=== PATIENT | female | born 1945 | race Caucasian/White ===

== ENCOUNTER 2022-07-02 21:51 | Emergency (ER) | payer MEDICARE, OTHER ==
[~2022-07-02] VITALS: Ht 162.6 cm; Wt 77.1 kg
--- NOTE | 2022-07-02 22:05 | NUR ---
TO ER BED 9. BIBFAMILY C/O RIGHT FOOT PAIN S/P HITTING FOOT ON KITCKEN COUNTER . PAIN WHILE AMBULATING. PT IS ALERT AND ORIENTED. BREATHING IS EVEN AND NONLABORED. CONNECTED TO MONITOR. AWAITING MD CORLEY
[2022-07-02] MEDS ORDERED: KETOROLAC TROMETHAMINE INJ 30 MG/ML VIAL ONE (22:26)
[2022-07-02] MEDS: KETOROLAC TROMETHAMINE INJ 30 MG/ML VIAL IM ONE (22:29)
--- NOTE | 2022-07-02 22:32 | NUR ---
XRAY AT BEDSIDE
[2022-07-02] MEDS ORDERED: IBUPROFEN 400 MG TABLET ONE (22:38)
[2022-07-02] MEDS: IBUPROFEN 400 MG TABLET PO ONE (22:46)
[2022-07-02] MEDS ORDERED: IBUP-1957 PO ×2 (23:01→23:20)
[2022-07-02 23:30] VITALS: BP 131/68
--- NOTE | 2022-07-02 23:30 | NUR ---
Patient discharged to home in stable condition. Written and verbal after care instructions given. Patient verbalizes understanding of instruction.
== END 2022-07-02 23:31 | disposition home or self-care (01) ==
LOC: ER 21:51
DX: S92.511A Displaced fracture of proximal phalanx of right lesser toe(s), initial encounter for closed fracture (principal); E78.00 Pure hypercholesterolemia, unspecified; F17.200 Nicotine dependence, unspecified, uncomplicated; Z79.1 Long term (current) use of non-steroidal anti-inflammatories (NSAID); W22.8XXA Striking against or struck by other objects, initial encounter; Y93.01 Activity, walking, marching and hiking; Y92.89 Other specified places as the place of occurrence of the external cause; Y99.8 Other external cause status
CPT/HCPCS: 73630-TC; J1885